=== PATIENT | female | born 2000 | race Caucasian/White ===

== ENCOUNTER 2022-08-01 10:07 | Observation (INO) | payer OTHER ==
[2022-08-01] MEDS ORDERED: HYDROmorphone 2 MG/ML SDV IVPUSH ONE ×2 (10:39→14:22)
[2022-08-01] MEDS ORDERED: MVI, Adult with Vitamin K 10 ML in Sodium Chloride 0.9% 1,000 ML IV ONE ×2 (10:42)
[2022-08-01] MEDS ORDERED: MVI, Adult with Vitamin K 10 ML, Thiamine 100 MG, Folic Acid 1 MG, Magnesium Sulfate 3 ... IV SCH ×5 (10:45)
[2022-08-01] MEDS ORDERED: Ondansetron 4 MG/2 ML SDV IVPUSH ONE (11:03)
[2022-08-01 11:22] LABS: ESTIMATED GFR 125 mL/min (>60)
[2022-08-01] MEDS ORDERED: Iopamidol 755 Mg/ML 100 ML Bottle IV ONE (11:36)
[2022-08-01] MEDS ORDERED: Sodium Chloride 0.9% 1,000 ML IV ONE ×2 (12:08→13:37)
[2022-08-01] MEDS ORDERED: LORazepam 2 MG/ML SDV IVPUSH ONE (12:14)
[2022-08-01] MEDS: Sodium Chloride 0.9% 1,000 ML IV SCH ×2 (15:37→20:53)
[2022-08-01] MEDS ORDERED: Ondansetron 4 MG/2 ML SDV IV PRN (16:01)
[2022-08-01] MEDS: Ketorolac 30 MG/ML SDV IVPUSH PRN (16:33)
[2022-08-01] MEDS: HYDROmorphone 2 MG/ML SDV IVPUSH PRN (19:40)
[2022-08-02] MEDS: HYDROmorphone 2 MG/ML SDV IVPUSH PRN ×2 (01:45→10:44)
[2022-08-02] MEDS: Sodium Chloride 0.9% 1,000 ML IV SCH ×2 (01:56→08:06)
[2022-08-02] MEDS: Ketorolac 30 MG/ML SDV IVPUSH PRN (07:16)
[2022-08-02 07:43] LABS: ESTIMATED GFR 125 mL/min (>60)
== END 2022-08-02 11:08 | disposition home or self-care (01) ==
LOC: FB.ED 10:07 → FB.MS 15:40
PROVIDERS: ADMIT Family Medicine; ATTEND Family Medicine
DX: K85.20 Alcohol induced acute pancreatitis without necrosis or infection (principal); F10.10 Alcohol abuse, uncomplicated; D72.810 Lymphocytopenia; E83.52 Hypercalcemia; Z79.899 Other long term (current) drug therapy
CPT/HCPCS: 36415; 74177; 80048; 80053; 80307; 81001; 81025; 83605; 83690; 83735; 85025; 86140; 96361; 96365; 96375; 96376; 99222; 99238; 99284; 99285-25; G0378; J1170; J1885; J2060; J2405; J3411; J3475; J3490; J7030; Q9967